=== PATIENT | female | born 1975 | race Caucasian/White ===

== ENCOUNTER → 2017-04-01 | Outpatient (CLI) | payer OTHER | END | disposition home or self-care (01) | LOC: CDC 12:05 | DX: I10 Essential (primary) hypertension (principal); R94.31 Abnormal electrocardiogram [ECG] [EKG] | CPT/HCPCS: 93000 ==

== ENCOUNTER 2017-04-15 05:22 | Day surgery (SDC) | payer OTHER ==
[~2017-04-15] VITALS: Ht 160 cm; Wt 105.0 kg
[~2017-04-15 05:22] MED LIST: DAILY MULTIPLE1 EACH PO; HYDROCHLOROTHIA25 MG PO; LABETALOL HCL100 MG PO; NIACIN500 M4 PO; ZOLOFT50 MG PO; ZYRTEC10 M3 PO
[2017-04-15 06:32] VITALS: BP 140/71
[2017-04-15] MEDS ORDERED: HYDROCODON-ACE1 EAC7 PO (08:29)
[2017-04-15] MEDS ORDERED: IBUPROFEN800 MG PO (08:29)
[2017-04-15 09:30] VITALS: BP 170/70
[2017-04-15 10:30] VITALS: BP 126/70
[2017-04-15 11:03] VITALS: BP 120/68
== END 2017-04-15 11:13 | disposition home or self-care (01) ==
LOC: SDC 05:22
PROC: 0UDB8ZX Extraction of Endometrium, Via Natural or Artificial Opening Endoscopic, Diagnostic (ICD-10-PCS; principal; 2017-04-15)
DX: N92.1 Excessive and frequent menstruation with irregular cycle (principal); R93.8 Abnormal findings on diagnostic imaging of other specified body structures; I10 Essential (primary) hypertension; E78.1 Pure hyperglyceridemia; F41.9 Anxiety disorder, unspecified
CPT/HCPCS: 88305; J0330; J1100; J1170; J2250; J2405; J3010; J7120